=== PATIENT | male | born 1980 | race Caucasian/White ===

== ENCOUNTER 2021-04-21 21:13 | Emergency (ER) | payer SELFPAY ==
[~2021-04-21 21:13] MED LIST: ILOTYCIN1 GM OU
[2021-04-22] MEDS ORDERED: KEFLEX750 MG PO (02:38)
== END 2021-04-22 02:50 | disposition home or self-care (01) ==
LOC: FER 21:13
DX: S60.352A Superficial foreign body of left thumb, initial encounter (principal); F17.210 Nicotine dependence, cigarettes, uncomplicated; Z23 Encounter for immunization; W45.8XXA Other foreign body or object entering through skin, initial encounter
CPT/HCPCS: 90471; 90715